=== PATIENT | male | born 1990 | race Caucasian/White ===

== ENCOUNTER 2022-07-19 07:20 | Emergency (ER) | payer SELFPAY ==
[~2022-07-19] VITALS: Ht 167.6 cm; Wt 68.0 kg
[2022-07-19 07:49] VITALS: BP_SYST 153
--- NOTE | 2022-07-19 08:46 | NUR ---
BIBS WITH C/C OF LEFT FLANK PAIN THAT STARTED THIS AM. PT REPORTS HX OF KIDNEY STONES IN 2015. NO OTHER MEDICAL HX. NO BED AVAILABLE IN MAIN ED. PT PLACED IN LOBBY UNTIL BED AVAILABLE. FAMILY SITTING WITH PT. DR. GOODWIN MADE AWARE.
[2022-07-19 10:17] LABS: BILIRUBIN,URINE NEGATIVE (NEGATIVE); BLOOD, URINE 3+ (NEGATIVE); COLOR,URINE YELLOW (YELLOW); GLUCOSE,URINE NEGATIVE (NEGATIVE); KETONES,URINE NEGATIVE (NEGATIVE); LEUKOCYTE ESTERASE ,URINE NEGATIVE (NEGATIVE); NITRITE, URINE NEGATIVE (NEGATIVE); PROTEIN URINE 1+ (NEGATIVE); UROBILINOGEN,URINE 0.2 (0.2-1.0)
[2022-07-19 10:26] LABS: CLARITY/URINE HAZY (CLEAR)
[2022-07-19 10:28] LABS: BACTERIA,URINE MODERATE /HPF (None Seen); MUCUS,URINE 1+ /LPF (None Seen); RBC,URINE 20-50 /HPF (0-3); WBC,URINE 0-3 /HPF (0-3)
[2022-07-19 10:29] LABS: URINE AMORPHOUS PHOSPHATES 1+ /HPF (None Seen)
[2022-07-19 10:41] LABS: BASOPHILS % (AUTO) 0.3 % (0.0-2.0); HEMATOCRIT 43.9 % (36-54); HEMOGLOBIN 15.2 g/dL (14.0-18.0); LYMPHOCYTES % (AUTO) 7.7 % (20.5-51.5); MEAN CORPUSCULAR HEMOGLOBIN 30 pg (27-31); MEAN CORPUSCULAR HGB CONC 35 % (32-36); MEAN CORPUSCULAR VOLUME 86 fL (79.0-98.0); MONOCYTES # (AUTO) 0.4 K/uL (0.0-1.0); MONOCYTES % (AUTO) 3.2 % (1.7-9.3); NEUTROPHILS # (AUTO) 12.1 K/uL (1.8-7.7); NEUTROPHILS % (AUTO) 88.8 % (40.0-70.0); PLATELET COUNT (AUTO) 282 K/uL (130-430); RED BLOOD CELL COUNT(AUTO) 5.09 MIL/uL (4.2-6.2); RED CELL DISTRIBUTION WIDTH 13.1 % (9.0-15.0); WHITE BLOOD COUNT (AUTO) 13.7 K/uL (4.8-10.8)
--- NOTE | 2022-07-19 10:50 | NUR ---
RECEIVED PT FROM ALEE CLAYTON. PT HAS C/O FLANK PAIN, STATES HE THINKS HE ALREADY PASSED A KIDNEY STONE. ATTEMPTED TO START IV ACCESS BUT PT REFUSED STATING, "I DON'T HAVE MEDICAL INSURANCE AND DON'T WANT AN IV". INDICATIONS FOR IV INSERTION, RISKS AND BENEFITS. PT STILL REFUSED. DR. GOODWIN AWARE. RESP E/U. ON R/A. ABDOMEN SOFT, TENDER, NONDISTENDED. BOWEL SOUNDS ACTIVE X4. PT HAVING EPISODE OF N/V. SKIN WARM, DISTAL PULSES NORMAL, NO EDEMA, CDI. SIDERAILS UP X2.
[2022-07-19 11:14] LABS: CALCIUM 9.3 mg/dL (8.4-11.0); CREATININE 1.2 mg/dL (0.55-1.30); POTASSIUM 4.2 mmol/L (3.5-5.1)
[2022-07-19 11:20] LABS: ALBUMIN 4.4 g/dL (3.4-4.8); TOTAL BILIRUBIN 0.4 mg/dL (0.0-1.0)
[2022-07-19] MEDS ORDERED: MORPHINE SULFATE 10 MG/ML VIAL IM ONE (11:30)
--- NOTE | 2022-07-19 12:35 | NUR ---
PT STATED HE IS FEELING BETTER AND WOULD LIKE TO LEAVE AMA. PT EDUCATED ON THE RISKS OF LEAVING THE HOSPITAL AMA. PT STATED HE WOULD STILL LIKE TO LEAVE. AMA FORM SIGNED. DR. GOODWIN MADE AWARE.
--- NOTE | 2022-07-19 13:33 | NUR ---
PATIENT LEFT AMA [id number]
== END 2022-07-19 13:21 | disposition left against medical advice (07) ==
LOC: SED 07:20
DX: R10.9 Unspecified abdominal pain (principal); Z79.899 Other long term (current) drug therapy
CPT/HCPCS: 36415; 80053; 81000; 85025; 87086; 99283